=== PATIENT | male | born 1965 | race Caucasian/White ===

== ENCOUNTER → 2018-03-02 | Outpatient (CLI) | payer BC ==
[~2018-03-02] MED LIST: HYDROCODON-ACE1 EAC7 PO; LASIX 40 MG TAB40 M1; LOVASTAT20; NASONEX17 GM NS; PRINZIDE 20-121 EACH
[2018-03-02 11:01] LABS: CHOLESTEROL 201 mg/dL (<200); CREATININE 0.8 mg/dL (0.6-1.3); GLUCOSE 100 mg/dL (70-99); HDL CHOLESTEROL 36 mg/dL (>40); LDL CHOLESTEROL 119 mg/dL (<100); SGOT 28 U/L (15-37); SGPT 42 U/L (30-65); TC:HDL 5.6 Ratio (Not establshd); TRIGLYCERIDE 232 mg/dL (<150); VLDL 46 mg/dL (<40)
[2018-03-02 11:06] LABS: SERUM ASSESSMENT Clear
[2018-03-03 02:07] LABS: GLYCOHEMOGLOBIN (HGB A1C) 5.1 % (4.8-5.6)
== END ==
LOC: M.LAB 09:12
PROVIDERS: Internal Medicine
DX: I10 Essential (primary) hypertension (principal); E78.2 Mixed hyperlipidemia; R53.82 Chronic fatigue, unspecified; I25.10 Atherosclerotic heart disease of native coronary artery without angina pectoris; E78.00 Pure hypercholesterolemia, unspecified; E03.9 Hypothyroidism, unspecified; Z95.5 Presence of coronary angioplasty implant and graft; Z87.891 Personal history of nicotine dependence